=== PATIENT | male | born 2005 | race Hispanic/Latino ===

== ENCOUNTER 2024-03-17 18:33 | Observation (INO) | payer OTHER ==
[2024-03-17] MEDS ORDERED: fentaNYL 50 mcg/mL 1 mL Vial ONE (18:53)
[2024-03-17] MEDS ORDERED: hydrALAZINE 20 MG/ML VIAL SLOW IVP PRN (18:58)
[2024-03-17] MEDS ORDERED: Promethazine HCl 25 MG/ML VIAL IM PRN (18:58)
[2024-03-17] MEDS ORDERED: Acetaminophen 325 MG TAB PO PRN (18:58)
[2024-03-17] MEDS ORDERED: Morphine 2 MG/ML VIAL SLOW IVP PRN (18:58)
[2024-03-17] MEDS ORDERED: Glucagon 1 MG/ML KIT IM PRN (18:58)
[2024-03-17] MEDS ORDERED: Ondansetron PF 4 MG/2 ML Vial IVP PRN (18:58)
[2024-03-17] MEDS ORDERED: Dextrose 50% Abboject 50 ML SYRINGE SLOW IVP PRN (18:58)
[2024-03-17] MEDS ORDERED: Calcium Carbonate 500 MG ChewTAB PO PRN (18:58)
[2024-03-17] MEDS ORDERED: traMADol HCl 50 MG TAB PO PRN (18:58)
[2024-03-17] MEDS ORDERED: Dextrose 5% in Water 1,000 ML IV PRN (18:58)
[2024-03-17] MEDS ORDERED: Mag-Al 1200 mg/1200 mg/30 ML UDCUP PO PRN (18:58)
[2024-03-17] MEDS ORDERED: Ondansetron PF 4 MG/2 ML Vial ONE (19:05)
[2024-03-17] MEDS: Famotidine 20 MG TAB PO SCH (21:00)
[2024-03-17] MEDS: Piperacillin/Tazobactam 3.375 GM in Sodium Chloride 0.9% 100 ML IVPB SCH (21:00)
[2024-03-17] MEDS: Famotidine/PF 20 mg/2ml Vial SLOW IVP SCH (21:01)
[2024-03-17 21:32] VITALS: BMI 28.8
[2024-03-17] MEDS ORDERED: Piperacillin/Tazobactam 2.25 GM in Sodium Chloride 0.9% 100 ML IVPB SCH (22:00)
[2024-03-17] MEDS ORDERED: Ketorolac Tromethamine 30 MG (1 mL) VIAL IVP SCH (23:59)
[2024-03-18] MEDS: Ketorolac Tromethamine 30 MG (1 mL) VIAL IVP SCH (01:03)
[2024-03-18] MEDS: Piperacillin/Tazobactam 3.375 GM VIAL ONE (02:00)
[2024-03-18] MEDS: Piperacillin/Tazobactam 3.375 GM in Sodium Chloride 0.9% 100 ML IVPB SCH (02:01)
[2024-03-18 04:43] LABS: #Basophils Less than 0.03 10x3/uL (0.0-0.2); %Basophils 0.2 % (0.0-1.0); %Eosinophils 0.7 % (0.0-10.0); %Lymphocytes 23.3 % (28.0-48.0); %Monocytes 13.1 % (0.0-4.0); %Neutrophils 62.4 % (31.0-61.0); Hematocrit 46.2 % (42.0-52.0); Hemoglobin 15.9 g/dL (14.0-18.0); Mean Corpuscular HGB CONC 34.4 g/dL (32.0-36.0); Mean Corpuscular Hemoglobin 28.3 pg (25.0-35.0); Mean Corpuscular Volume 82.4 fL (78.0-98.0); Mean Platelet Volume 10.1 fL (7.4-10.4); Platelet Count 272 10x3/uL (130-400); RBC Distribution Width 13.3 % (11.5-14.5); Red Blood Cell (RBC) Count 5.61 mill/uL (4.00-5.20)
[2024-03-18 05:15] LABS: ALT (SGPT) 63 U/L (8-55); AST (SGOT) 25 U/L (5-34); Albumin 3.9 g/dL (3.5-5.0); Alkaline Phosphatase 80 U/L (50-130); Anion Gap 13 mmol/L (10-20); BUN (Urea Nitrogen) 9 mg/dL (8.9-20.6); Bilirubin, Total 1.6 mg/dL (0.2-1.2); Calc. Creatinine Clearance 163 mL/min (70-130); Calcium 9.6 mg/dL (7.8-10.44); Carbon Dioxide 24 mmol/L (22-29); Chloride 106 mmol/L (98-107); Estimated GFR 126; Glucose 106 mg/dL (70-105); Protein, Total 7.9 g/dL (6.0-8.3); Sodium 139 mmol/L (136-145)
[2024-03-18] MEDS ORDERED: Indocyanine Green 25 MG/10 ML VIAL ONE (07:18)
[2024-03-18] MEDS ORDERED: EPINEPHrine 1 MG/ML VIAL ONE (07:18)
[2024-03-18] MEDS ORDERED: Bupivacaine 0.25% HCL 30 ML VIAL ONE (07:19)
[2024-03-18] MEDS ORDERED: fentaNYL PF 100 MCG/2 ML SYRINGE ONE (07:46)
[2024-03-18] MEDS ORDERED: PROPOFOL 20 ML ONE (07:46)
[2024-03-18] MEDS ORDERED: Rocuronium Bromide 10 MG/ML (10ML VIAL) ONE (07:46)
[2024-03-18] MEDS ORDERED: Lidocaine 1% PF 5 ML VIAL ONE (07:46)
[2024-03-18] MEDS ORDERED: Dexamethasone 4 mg/ml Vial ONE (08:42)
[2024-03-18] MEDS ORDERED: fentaNYL 50 mcg/mL 1 mL Vial ONE (09:21)
[2024-03-18] MEDS ORDERED: Ketorolac Tromethamine 30 MG (1 mL) VIAL ONE (09:22)
[2024-03-18] MEDS ORDERED: SUGAMMADEX SODIUM 200 MG/2 ML VIAL ONE (09:31)
[2024-03-18] MEDS: FLU (Fluarix Triv) TS24-25(6MOS UP)/PF 45 MCG/0.5 ML Syringe IM ONE (10:47)
[2024-03-18 15:43] VITALS: BP 125/65; TEMP 98.9
[2024-03-18] MEDS: HYDROcodone/Acetaminophen 5/325 mg Tablet PO PRN (16:16)
== END 2024-03-18 18:21 | disposition home or self-care (01) ==
LOC: ERS 18:33 → SURG A 18:58
PROVIDERS: ADMIT Surgery; ATTEND Surgery
PROC: 0FT44ZZ Resection of Gallbladder, Percutaneous Endoscopic Approach (ICD-10-PCS; principal; 2024-03-18)
PROC: BF00YZZ Plain Radiography of Bile Ducts using Other Contrast (ICD-10-PCS; 2024-03-18)
DX: K80.12 Calculus of gallbladder with acute and chronic cholecystitis without obstruction (principal); Z79.899 Other long term (current) drug therapy
CPT/HCPCS: 36415; 80053; 85025; 88304; 96361; 96374; 96375; 96376; C1889; G0378; J0171; J0665; J1100; J1885; J2405; J2543; J2704; J3010; S2900